=== PATIENT | male | born 1965 | race Caucasian/White ===

== ENCOUNTER 2019-04-05 10:55 | Inpatient (IN) | payer OTHER ==
[2019-04-05 11:34] VITALS: BMI 25.9
--- NOTE | 2019-04-05 13:21 | PN ---
Teaching Attending Note Name of Resident: Kavitha Hancock ATTENDING PHYSICIAN STATEMENT I saw and evaluated the patient. I reviewed the resident's note and discussed the case with the resident. I agree with the resident's findings and plan as documented. SUBJECTIVE: 53 yo with HTN, heroin use disorder, cocaine use, MJ use, was last in detox in February for heroin use, was given Suboxone, discharged on March 31, but relapsed on Apr 02. Using heroin 10bags/day, injects with cocaine- 4 bags/ day. Last use yesterday. Now in withdrawal. COWS 13 OBJECTIVE: Vital Signs - 24 hr 04/05/19 04/05/19 11:24 11:55 Temperature 98.2 F 98.2 F Pulse Rate 75 75 Respiratory 18 18 Rate Blood Pressure 153/98 153/98 tired alert and oriented tremulous ASSESSMENT AND PLAN: Heroin detox- with methadone HTN treatment with norvasc
--- NOTE | 2019-04-05 13:22 | HP ---
COWS - Scale Resting Pulse: 0= [place] 80 or Below Sweatin= Chills/Flushing Restless Observation: 1= Difficult to Sit Still Pupil Size: 0= Normal to Room Light Bone or Joint Aches: 1= Mild Discomfort Runny Nose/ Eye Tearin= Nasal Congestion GI Upset > 30mins: 2= Nausea/Diarrhea Tremor Observation: 1= Tremor [place], Not Seen Yawning Observation: 2= >3x During Session Anxiety or Irritability: 1=Feels Anxious/Irritable Goose Flesh Skin: 3=Piloerection COWS Score: 13 CIWA Score - Admission Criteria OASAS Guidelines: Admission for Medically Managed Detox: Requires at least one of the followin. CIWA greater than 12 2. Seizures within the past 24 hours 3. Delirium tremens within the past 24 hours 4. Hallucinations within the past 24 hours 5. Acute intervention needed for co occurring medical disorder 6. Acute intervention needed for co occurring psychiatric disorder 7. Severe withdrawal that cannot be handled at a lower level of care (continued vomiting, continued diarrhea, abnormal vital signs) requiring intravenous medication and/or fluids 8. Admission ROS [facility] Chief Complaint: detox from heroin and cocaine Allergies/Adverse Reactions: Allergies Allergy/AdvReac Type Severity Reaction Status Date / Time No Known Allergies Allergy Verified 04/05/19 11:29 History of Present Illness: Mr. Foreman is a 53yo male with hx of heroin use disorder, cocaine use disorder , marijuana use disorder, and HTN who presents for detox from heroin and cocaine. He was in detox for 1 week followed by about 3 weeks of rehab at a facility in [place] where he was given suboxone. He also reports being newly diagnosed with HTN and [place] in [place]. He was given a prescription for suboxone at d/c on 03/31/19 but there was a problem with his Medicaid coverage lapsing, so he did not get it filled. He started using heroin and cocaine again on 04/02/19. He has been using 10 bags a day of heroin since the . He mixes it with heroin and injects. He has been using 4 bags of cocaine a day. He initially began heroin and cocaine use at age 16. Pt also reports smoking marijuana socially with last use 3 days ago. He reports occasional ETOH use as well. Smokes tobacco 1/2 ppd. Pt is currently homeless and stays in [place]. Pt reports abdominal pain, nausea, myalgias, chills, hot flashes, goosebumps, SOB, cough, wheezing. Pt denies vomiting, diarrhea, paresthesias, and MERCADO. PMH: heroin, cocaine, and marijuana use disorders, HTN surgical hx: prostatectomy meds: Norvasc, unsure of dosage NKDA - Ebola screening Have you traveled outside of the country in the last 21 days: No Have you had contact with anyone from an Ebola affected area: No Do you have a fever: No - Review of Systems Constitutional: Chills, Diaphoresis EENT: reports: No Symptoms Reported Respiratory: reports: Cough, Shortness of Breath, Wheezing Cardiac: reports: No Symptoms Reported GI: reports: Nausea : reports: No Symptoms Reported Musculoskeletal: reports: Joint Pain, Muscle Pain Integumentary: reports: No Symptoms Reported Neuro: reports: Dizziness Endocrine: reports: Flushing Hematology: reports: No Symptoms Reported Psychiatric: reports: Judgement Intact, Orientated x3, Agitated Patient History - Patient Medical History Hx Asthma: No Hx Cancer: No Hx Hypertension: Yes - Patient Surgical History Past Surgical History: Yes Hx Abdominal Surgery: Yes (prostate removal 2017) - Smoking Cessation Smoking history: Current every day smoker Have you smoked in the past 12 months: Yes Aproximately how many cigarettes per day: 10 Initiated information on smoking cessation: Yes 'Breaking Loose' booklet given: 04/05/19 - Substance & Tx. History Hx Alcohol Use: Yes (intermittent) Hx Substance Use: Yes Substance Use Type: Alcohol, Cocaine, Heroin, Marijuana Hx Substance Use Treatment: Yes (d/c'ed from rehab on 03/31/19) - Substances abused Heroin Substance route: Injection Frequency: Daily Amount used: 10BAGS Age of first use: 16 Date of last use: 04/04/19 Cocaine Substance route: Injection Frequency: Daily Amount used: 4BAGS Age of first use: 16 Date of last use: 04/04/19 Family Disease History - Family Disease History Family History: Denies Admission Physical Exam BHS - Vital Signs Vital Signs: Vital Signs - 24 hr 04/05/19 04/05/19 11:24 11:55 Temperature 98.2 F 98.2 F Pulse Rate 75 75 Respiratory 18 18 Rate Blood Pressure 153/98 153/98 - Physical General Appearance: Yes: Mild Distress HEENTM: Yes: Hearing grossly Normal, NAIN, Pharynx Normal Respiratory: Yes: Lungs Clear, No Respiratory Distress Neck: Yes: Within Normal Limits Cardiology: Yes: Regular Rhythm, Regular Rate Abdominal: Yes: Normal Bowel Sounds, Tenderness Back: Yes: Normal Inspection Musculoskeletal: Yes: full range of Motion Extremities: Yes: Normal Range of Motion Neurological: Yes: 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 II-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 NML intact, Fully Oriented, Alert, Motor Strength 5/5 Integumentary: Yes: Within Normal Limits Cleared for Admission S - Detox or Rehab [facility] Level of Care: Medically Managed Breathalyzer - Breathalyzer Breathalyzer: 0 Vital Signs - Vital Signs Temperature: 98.2 F Pulse Rate: 75 Respiratory Rate: 18 Blood Pressure: 153/98 Blood Pressure position: Sitting - Height Height: 5 ft 6 in - Weight Weight: 73.028 kg - BMI Body Mass Index (BMI): 25.9 Urine Drug Screen - Test Device Lot number: [id number] Expiration date: 12/28/20 - Control Is test valid?: Yes - Results Drug screen NEGATIVE: No Urine drug screen results: THC-Marijuana, ARNULFO-Cocaine, FEN-Fentanyl, MOP-Opiates , OXY-Oxycodone, BZO-Benzodiazepines, BUP-Suboxone Inpatient Rehab Admission - Rehab Decision to Admit Inpatient rehab admission?: No
[2019-04-05] MEDS ORDERED: MAGNESIUM HYDROX 2400MG/30ML ORAL SUSPENSION 30 ML CUP PO PRN (13:23)
[2019-04-05] MEDS ORDERED: MAG HYDROX/AL HYDROX/SIMETH 30 ML UNIT-DOSE CUP PO PRN (13:23)
[2019-04-05] MEDS ORDERED: NICOTINE POLACRILEX 2 MG GUM BUC PRN (13:23)
[2019-04-05] MEDS ORDERED: MENTHOL/PHENOL 1 EACH UD MM PRN (13:23)
[2019-04-05] MEDS ORDERED: IBUPROFEN 400 MG TABLET (FP) PO PRN (13:23)
[2019-04-05] MEDS ORDERED: BISMUTH SUBSALICYLATE 524 MG/30 ML UD PO PRN (13:23)
[2019-04-05] MEDS ORDERED: MAGNESIUM CITRATE 300 ML BOTTLE PO PRN (13:23)
[2019-04-05] MEDS ORDERED: hydrOXYzine PAMOATE 25 MG CAPSULE (FP) PO PRN (13:23)
[2019-04-05] MEDS ORDERED: ACETAMINOPHEN 325 MG TABLET (FP) PO PRN ×2 (13:23)
[2019-04-05] MEDS ORDERED: METHADONE HCL 10 MG TABLET (FOR DETOX USE ONLY) PO ONE (15:00)
[2019-04-05] MEDS: cloNIDine HCL 0.1 MG TABLET PO PRN ×2 (18:01→22:42)
[2019-04-05] MEDS: METHOCARBAMOL 500 MG TABLET PO PRN (18:01)
[2019-04-05] MEDS: THIAMINE HCL 100 MG TABLET (FP) PO SCH (22:42)
[2019-04-05] MEDS: MELATONIN 5 MG TABLETS PO PRN (22:42)
[2019-04-06] MEDS ORDERED: METHADONE HCL 10 MG TABLET (FOR DETOX USE ONLY) ONE (09:21)
[2019-04-06] MEDS ORDERED: METHADONE HCL 5 MG TABLET (FOR DETOX USE ONLY) ONE (09:21)
[2019-04-06] MEDS ORDERED: METHADONE (DETOX) 20 MG, METHADONE (DETOX) 5 MG PO ONE (10:00)
[2019-04-06] MEDS: PRENATAL VITAMINS W/ FOLIC ACID TABLET (FP) PO SCH (10:19)
--- NOTE | 2019-04-06 10:38 | PN ---
BHS COWS - Scale Resting Pulse: 1= [place] 81-100 Sweatin=Flushed/Facial Moisture Restless Observation: 1= Difficult to Sit Still Pupil Size: 0= Normal to Room Light Bone or Joint Aches: 2= Severe Diffuse Aches Runny Nose/ Eye Tearin= Runny Nose/Eyes GI Upset > 30mins: 1= Stomach Cramp Tremor Observation of Outstretched Hands: 1= Tremor [place], Not Seen Yawning Observation: 1= 1-2x During Session Anxiety or Irritability: 1=Feels Anxious/Irritable Goose Flesh Skin: 0=Smooth Skin COWS Score: 12 BHS Progress Note (SOAP) Subjective: sweats shakes interrupted sleep anxiety irritable Objective: 04/06/19 10:36 Vital Signs Temperature 97.5 F L 04/06/19 06:53 Pulse Rate 66 04/06/19 06:53 Respiratory Rate 18 04/06/19 06:53 Blood Pressure 135/99 04/06/19 06:53 O2 Sat by Pulse Oximetry (%) pending labs aaox3 ambulating no acute distress Assessment: 04/06/19 10:37 withdrawal sx Plan: continue detox increase fluids pending labs valium 10mg prn x 3 days
[2019-04-06 11:05] LABS: ALBUMIN 3.9 g/dl (3.4-5.0); BILIRUBIN,TOTAL 0.4 mg/dL (0.2-1); BLOOD UREA NITROGEN 19.9 mg/dL (7-18); CREATININE 0.8 mg/dL (0.55-1.3); POTASSIUM 3.6 mmol/L (3.5-5.1); TOT PROT 7.3 g/dl (6.4-8.2)
[2019-04-06 11:53] LABS: HEMOGLOBIN 13.1 GM/dL (11.7-16.9); MCH 27.9 pg (25.7-33.7); MCHC 33.5 g/dl (32.0-35.9); MEAN CELL VOLUME 83.4 fl (80-96); MEAN PLT VOLUME 8.6 fl (7.5-11.1); PLATELET COUNT 232 K/MM3 (134-434); RBC 4.67 M/mm3 (4.00-5.60); RDW 14.9 % (11.9-15.9); WHITE BLOOD COUNT 4.7 K/mm3 (4.0-10.0)
[2019-04-06] MEDS: diazePAM 5 MG TABLET PO PRN ×2 (18:17→22:06)
[2019-04-06] MEDS: MELATONIN 5 MG TABLETS PO PRN (22:06)
[2019-04-06] MEDS: THIAMINE HCL 100 MG TABLET (FP) PO SCH (22:06)
[2019-04-07] MEDS ORDERED: METHADONE HCL 10 MG TABLET (FOR DETOX USE ONLY) PO ONE (10:00)
[2019-04-07] MEDS: PRENATAL VITAMINS W/ FOLIC ACID TABLET (FP) PO SCH (10:35)
--- NOTE | 2019-04-07 12:23 | PN ---
BHS COWS - Scale Resting Pulse: 0= [place] 80 or Below Sweatin=Flushed/Facial Moisture Restless Observation: 1= Difficult to Sit Still Pupil Size: 0= Normal to Room Light Bone or Joint Aches: 2= Severe Diffuse Aches Runny Nose/ Eye Tearin= Nasal Congestion GI Upset > 30mins: 0= None Tremor Observation of Outstretched Hands: 1= Tremor [place], Not Seen Yawning Observation: 1= 1-2x During Session Anxiety or Irritability: 1=Feels Anxious/Irritable Goose Flesh Skin: 0=Smooth Skin COWS Score: 9 BHS Progress Note (SOAP) Subjective: sweats feeling better anxiety Objective: 04/07/19 12:23 Vital Signs Temperature 97.5 F L 04/07/19 09:33 Pulse Rate 79 04/07/19 09:33 Respiratory Rate 18 04/07/19 09:33 Blood Pressure 137/93 04/07/19 09:33 O2 Sat by Pulse Oximetry (%) Laboratory Tests 04/06/19 04/06/19 04/06/19 06:30 06:30 06:30 WBC 4.7 RBC 4.67 Hgb 13.1 Hct 39.0 MCV 83.4 MCH 27.9 MCHC 33.5 RDW 14.9 Plt Count 232 MPV 8.6 Sodium 143 Potassium 3.6 Chloride 109 H Carbon Dioxide 29 Anion Gap 6 L BUN 19.9 H Creatinine 0.8 Est GFR (CKD-EPI)AfAm 116.56 Est GFR (CKD-EPI)NonAf 100.57 Random Glucose 144 H Calcium 9.0 Total Bilirubin 0.4 AST 30 ALT 42 Alkaline Phosphatase 105 Total Protein 7.3 Albumin 3.9 RPR Titer Nonreactive labs noted aaox3 ambulating no acute distress Assessment: 04/07/19 12:23 withdrawal sx Plan: continue detox increase fluids
[2019-04-07] MEDS ORDERED: HYDROCORTISONE 1% TOPICAL OINT 30 GM TUBE TP PRN (15:14)
[2019-04-07] MEDS: diazePAM 5 MG TABLET PO PRN (20:07)
[2019-04-07] MEDS: cloNIDine HCL 0.1 MG TABLET PO PRN (22:03)
[2019-04-07] MEDS: MELATONIN 5 MG TABLETS PO PRN (22:03)
[2019-04-07] MEDS: THIAMINE HCL 100 MG TABLET (FP) PO SCH (22:03)
[2019-04-08] MEDS ORDERED: METHADONE HCL 10 MG TABLET (FOR DETOX USE ONLY) ONE (09:03)
[2019-04-08] MEDS ORDERED: METHADONE HCL 5 MG TABLET (FOR DETOX USE ONLY) ONE (09:03)
[2019-04-08] MEDS ORDERED: METHADONE (DETOX) 10 MG, METHADONE (DETOX) 5 MG PO ONE (10:00)
[2019-04-08] MEDS: PRENATAL VITAMINS W/ FOLIC ACID TABLET (FP) PO SCH (10:44)
--- NOTE | 2019-04-08 11:15 | PN ---
BHS COWS - Scale Resting Pulse: 1= [place] 81-100 Sweatin=Flushed/Facial Moisture Restless Observation: 1= Difficult to Sit Still Pupil Size: 0= Normal to Room Light Bone or Joint Aches: 1= Mild Discomfort Runny Nose/ Eye Tearin= Nasal Congestion GI Upset > 30mins: 0= None Tremor Observation of Outstretched Hands: 1= Tremor [place], Not Seen Yawning Observation: 1= 1-2x During Session Anxiety or Irritability: 1=Feels Anxious/Irritable Goose Flesh Skin: 0=Smooth Skin COWS Score: 9 BHS Progress Note (SOAP) Subjective: sweats interrupted sleep Objective: 04/08/19 11:15 Vital Signs Temperature 97.7 F 04/08/19 10:08 Pulse Rate 84 04/08/19 10:08 Respiratory Rate 18 04/08/19 10:08 Blood Pressure 145/83 04/08/19 10:08 O2 Sat by Pulse Oximetry (%) Laboratory Tests 04/05/19 04/06/19 04/06/19 13:30 06:30 06:30 WBC 4.7 RBC 4.67 Hgb 13.1 Hct 39.0 MCV 83.4 MCH 27.9 MCHC 33.5 RDW 14.9 Plt Count 232 MPV 8.6 Sodium 143 Potassium 3.6 Chloride 109 H Carbon Dioxide 29 Anion Gap 6 L BUN 19.9 H Creatinine 0.8 Est GFR (CKD-EPI)AfAm 116.56 Est GFR (CKD-EPI)NonAf 100.57 Random Glucose 144 H Calcium 9.0 Total Bilirubin 0.4 AST 30 ALT 42 Alkaline Phosphatase 105 Total Protein 7.3 Albumin 3.9 RPR Titer TB (QFT) Incubation TB Test (QFT) Nil 0.05 TB Test (QFT) Mitogen >10.00 TB Test (QFT) Antigen 0.06 TB Test (QFT) Negative TB Positive Criteria 04/06/19 06:30 WBC RBC Hgb Hct MCV MCH MCHC RDW Plt Count MPV Sodium Potassium Chloride Carbon Dioxide Anion Gap BUN Creatinine Est GFR (CKD-EPI)AfAm Est GFR (CKD-EPI)NonAf Random Glucose Calcium Total Bilirubin AST ALT Alkaline Phosphatase Total Protein Albumin RPR Titer Nonreactive TB (QFT) Incubation TB Test (QFT) Nil TB Test (QFT) Mitogen TB Test (QFT) Antigen TB Test (QFT) TB Positive Criteria labs noted aaox3 ambulating no acute distress Assessment: 04/08/19 11:16 withdrawal sx Plan: continue detox increase fluids
[2019-04-08] MEDS: diazePAM 5 MG TABLET PO PRN (15:55)
[2019-04-08] MEDS: MELATONIN 5 MG TABLETS PO PRN (22:29)
[2019-04-08] MEDS: THIAMINE HCL 100 MG TABLET (FP) PO SCH (22:29)
[2019-04-08] MEDS: METHOCARBAMOL 500 MG TABLET PO PRN (22:31)
[2019-04-09 09:34] VITALS: BP 155/80; PULSE 80; TEMP 97.7
[2019-04-09] MEDS ORDERED: METHADONE HCL 10 MG TABLET (FOR DETOX USE ONLY) PO ONE (10:00)
[2019-04-09] MEDS: PRENATAL VITAMINS W/ FOLIC ACID TABLET (FP) PO SCH (10:22)
--- NOTE | 2019-04-09 10:22 | DS ---
[facility] Detox Discharge Summary Admission Date: 04/05/19 Discharge Date: 04/09/19 - History Present History: Opioid Dependence - Physical Exam Results Vital Signs: Vital Signs Temperature 97.7 F 04/09/19 09:34 Pulse Rate 80 04/09/19 09:34 Respiratory Rate 18 04/09/19 09:34 Blood Pressure 155/80 04/09/19 09:34 O2 Sat by Pulse Oximetry (%) Pertinent Admission Physical Exam Findings: pt arrived in withdrawals Laboratory Tests 04/05/19 04/06/19 04/06/19 13:30 06:30 06:30 WBC 4.7 RBC 4.67 Hgb 13.1 Hct 39.0 MCV 83.4 MCH 27.9 MCHC 33.5 RDW 14.9 Plt Count 232 MPV 8.6 Sodium 143 Potassium 3.6 Chloride 109 H Carbon Dioxide 29 Anion Gap 6 L BUN 19.9 H Creatinine 0.8 Est GFR (CKD-EPI)AfAm 116.56 Est GFR (CKD-EPI)NonAf 100.57 Random Glucose 144 H Calcium 9.0 Total Bilirubin 0.4 AST 30 ALT 42 Alkaline Phosphatase 105 Total Protein 7.3 Albumin 3.9 RPR Titer TB (QFT) Incubation TB Test (QFT) Nil 0.05 TB Test (QFT) Mitogen >10.00 TB Test (QFT) Antigen 0.06 TB Test (QFT) Negative TB Positive Criteria 04/06/19 06:30 WBC RBC Hgb Hct MCV MCH MCHC RDW Plt Count MPV Sodium Potassium Chloride Carbon Dioxide Anion Gap BUN Creatinine Est GFR (CKD-EPI)AfAm Est GFR (CKD-EPI)NonAf Random Glucose Calcium Total Bilirubin AST ALT Alkaline Phosphatase Total Protein Albumin RPR Titer Nonreactive TB (QFT) Incubation TB Test (QFT) Nil TB Test (QFT) Mitogen TB Test (QFT) Antigen TB Test (QFT) TB Positive Criteria today he is aaox3 ambulating no s/s of withdrawals - Treatment Hospital Course: Detox Protocol Followed, Detoxed Safely, Responded well, Discharged Condition Good, Rehab Referral Accepted Patient has Accepted a Rehab Referral to: referral provided - Medication Discharge Medications: Ambulatory Orders NK [No Known Home Medication] 04/05/19 - Diagnosis (1) Opioid dependence with withdrawal Current Visit: Yes Status: Chronic - AMA Did Patient Leave Against Medical Advice: No
[2019-04-10] MEDS ORDERED: METHADONE HCL 5 MG TABLET (FOR DETOX USE ONLY) PO ONE (06:00)
== END 2019-04-09 10:36 | disposition home or self-care (01) | DRG 773 ==
LOC: YASAS 10:55 → Y6N 14:30
PROVIDERS: ADMIT Surgery; ATTEND Surgery
PROC: HZ2ZZZZ Detoxification Services for Substance Abuse Treatment (ICD-10-PCS; principal; 2019-04-05)
DX: F11.23 Opioid dependence with withdrawal (principal); F14.20 Cocaine dependence, uncomplicated; F17.210 Nicotine dependence, cigarettes, uncomplicated; I10 Essential (primary) hypertension
CPT/HCPCS: 36415; 80053; 85027; 86480; 86593; J0735

== ENCOUNTER 2019-04-28 12:34 | Inpatient (IN) | payer OTHER ==
[2019-04-28 13:21] VITALS: BMI 25.8
--- NOTE | 2019-04-28 14:09 | HP ---
COWS - Scale Resting Pulse: 0= [place] 80 or Below Sweatin= No chills or Flushing Restless Observation: 1= Difficult to Sit Still Pupil Size: 0= Normal to Room Light Bone or Joint Aches: 2= Severe Diffuse Aches Runny Nose/ Eye Tearin= Nasal Congestion GI Upset > 30mins: 2= Nausea/Diarrhea Tremor Observation: 0= None Yawning Observation: 1= 1-2x During Session Anxiety or Irritability: 2=Irritable/Anxious Goose Flesh Skin: 0=Smooth Skin COWS Score: 9 CIWA Score - Admission Criteria OASAS Guidelines: Admission for Medically Managed Detox: Requires at least one of the followin. CIWA greater than 12 2. Seizures within the past 24 hours 3. Delirium tremens within the past 24 hours 4. Hallucinations within the past 24 hours 5. Acute intervention needed for co occurring medical disorder 6. Acute intervention needed for co occurring psychiatric disorder 7. Severe withdrawal that cannot be handled at a lower level of care (continued vomiting, continued diarrhea, abnormal vital signs) requiring intravenous medication and/or fluids 8. Admission [facility] Chief Complaint: heroin detox Allergies/Adverse Reactions: Allergies Allergy/AdvReac Type Severity Reaction Status Date / Time No Known Allergies Allergy Verified 04/05/19 11:29 History of Present Illness: Patient is a 54 yo M with a PMHx of HTN, here for heroin, detox. He uses at least 10 bags a day for many years. He uses it IV. Last use was last night, 4 bags. says he wants to change his life. Says his last detox was a few weeks ago. Was on a methadone program years ago. Says he never liked it because it required him to go to a program every day which was hard because of work. Also does cocaine, around 80 dollars a day. Last cocaine use was last night. Carries a narcan pen with him. Currently unemployed. Lives in an apartment with his daughter. Smokes 1PPd of cigarettes per day. 04/05-04/09 Exam Limitations: No Limitations - Ebola screening Have you traveled outside of the country in the last 21 days: No (N) Have you had contact with anyone from an Ebola affected area: No Do you have a fever: No - Review of Systems Constitutional: Loss of Appetite, Unintentional Wgt. Loss (15 lbs in 2 months) Respiratory: reports: Cough. denies: Shortness of Breath Cardiac: denies: Lightheadedness, Palpitations Patient History - Patient Medical History Hx Asthma: No Hx Chronic Obstructive Pulmonary Disease (COPD): No Hx Cancer: No Hx Cardiac Disorders: No Hx Hypertension: No Hx Seizures: No Hx Diabetes: No Hx Gastrointestinal Disorders: No Hx Genitourinary Disorders: No Hx Sexually Transmitted Disorders: No Hx Renal Disease (ESRD): No Hx Depression: No Hx Suicide Attempt: No Hx Schizophrenia: No - Patient Surgical History Past Surgical History: Yes Hx Neurologic Surgery: No Hx Cataract Extraction: No Hx Cardiac Surgery: No Hx Lung Surgery: No Hx Breast Surgery: No Hx Breast Biopsy: No Hx Abdominal Surgery: Yes (prostate removal 2016) Hx Appendectomy: No Hx Cholecystectomy: No Hx Genitourinary Surgery: No Hx Section: No Hx Orthopedic Surgery: No Anesthesia Reaction: No - Smoking Cessation Smoking history: Current every day smoker Have you smoked in the past 12 months: Yes Aproximately how many cigarettes per day: 10 Hx Chewing Tobacco Use: No Initiated information on smoking cessation: Yes 'Breaking Loose' booklet given: 04/28/19 - Substances abused Heroin Substance route: Injection Frequency: Daily Amount used: 10 BAGS Age of first use: 16 Date of last use: 04/27/19 Cocaine Substance route: Injection Frequency: Daily Amount used: 5 BAGS Age of first use: 16 Date of last use: 04/27/19 Family Disease History - Family Disease History Family History: Denies Admission Physical Exam [facility] - Vital Signs Vital Signs: Vital Signs - 24 hr 04/28/19 13:12 Temperature 97.7 F Pulse Rate 74 Respiratory 18 Rate Blood Pressure 135/86 - Physical General Appearance: Yes: Irritable, Anxious Respiratory: Yes: No Respiratory Distress, No Accessory Muscle Use Neck: Yes: Supple Cardiology: Yes: Regular Rate, S1, S2 Abdominal: Yes: Non Tender, Soft Extremities: No: Swelling Integumentary: Yes: Track [place]. No: Rash - Diagnostic (1) Heroin abuse Current Visit: Yes Status: Acute (2) Cocaine abuse Current Visit: Yes Status: Acute (3) Hypertension Current Visit: Yes Status: Acute Cleared for Admission S - Detox or Rehab [facility] Level of Care: Medically Managed Breathalyzer - Breathalyzer Breathalyzer: 0 Urine Drug Screen - Test Device Lot number: [id number] Expiration date: 01/28/21 - Control Is test valid?: Yes - Results Drug screen NEGATIVE: No Urine drug screen results: ARNULFO-Cocaine, FEN-Fentanyl, MOP-Opiates, MTD-Methadone , BZO-Benzodiazepines, BUP-Suboxone Inpatient Rehab Admission - Rehab Decision to Admit Inpatient rehab admission?: No
--- NOTE | 2019-04-28 14:58 | PN ---
Teaching Attending Note Name of Resident: Alejandro Mckenna ATTENDING PHYSICIAN STATEMENT I saw and evaluated the patient. I reviewed the resident's note and discussed the case with the resident. I agree with the resident's findings and plan as documented. SUBJECTIVE:54 Y.O. MALE W/ LONG HX OPIATE DEPENDENCE , RECENT D/C FROM THIS FACILITY 04/09/19 , REPORTS RELAPSE AFTER D/C DID NOT GOT TO OUTPT , CURRENT DAILY USE 1 BUNDLE IVDU , NEEDLES FROM EXCHANGE, DENIES SHARING OR RE-USING, CLAIMS OD AFTER D/C FROM THIS FACILITY , NARCAN USED BY COUSIN , DID NOT GO TO HOSPITAL. DENIES ABSCESS . PMPM RX 04/05/19 ZUBSOLV # 15 REPORTS PARTICIPATION IN MMTP X 2 YEARS MDD 120 MG , VOLUNTARILY LEFT 2-3 YEARS AGO ( [place] ) . FIRST AGE OF USE 18 COCAINE : SINCE AGE 13 VIA INHALATION , 22 IVDU . 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 LIVES W/ DAUGHTER , STATES NARCAN KIT @ HOME . OBJECTIVE: WNWD CURRENT SYMPTOMS ABOVE, COWS =9 ASSESSMENT AND PLAN: OPIATE DEPENDENCE Cocaine dependence Nicotine dependence cannabis use , episodic . Obtain EKG Methadone taper . Vital Signs - 24 hr 04/28/19 04/28/19 13:12 17:28 Temperature 97.7 F 97.8 F Pulse Rate 74 74 Respiratory 18 18 Rate Blood Pressure 135/86 145/94
[2019-04-28] MEDS ORDERED: NICOTINE POLACRILEX 2 MG GUM BUC PRN (15:00)
[2019-04-28] MEDS ORDERED: BISMUTH SUBSALICYLATE 524 MG/30 ML UD PO PRN (15:00)
[2019-04-28] MEDS ORDERED: MAG HYDROX/AL HYDROX/SIMETH 30 ML UNIT-DOSE CUP PO PRN (15:00)
[2019-04-28] MEDS ORDERED: MAGNESIUM CITRATE 300 ML BOTTLE PO PRN (15:00)
[2019-04-28] MEDS ORDERED: IBUPROFEN 400 MG TABLET (FP) PO PRN (15:00)
[2019-04-28] MEDS ORDERED: ACETAMINOPHEN 325 MG TABLET (FP) PO PRN ×2 (15:00)
[2019-04-28] MEDS ORDERED: MAGNESIUM HYDROX 2400MG/30ML ORAL SUSPENSION 30 ML CUP PO PRN (15:00)
[2019-04-28] MEDS ORDERED: cloNIDine HCL 0.1 MG TABLET PO PRN (15:02)
[2019-04-28] MEDS ORDERED: METHADONE HCL 10 MG TABLET (FOR DETOX USE ONLY) PO ONE (16:15)
[2019-04-28] MEDS: PETROLATUM, WHITE 30 GM TUBE TP SCH (18:37)
[2019-04-28] MEDS: hydrOXYzine PAMOATE 25 MG CAPSULE (FP) PO PRN (22:33)
[2019-04-28] MEDS: THIAMINE HCL 100 MG TABLET (FP) PO SCH (22:33)
[2019-04-28] MEDS: METHOCARBAMOL 500 MG TABLET PO PRN (22:33)
[2019-04-28] MEDS: MELATONIN 5 MG TABLETS PO PRN (22:33)
[2019-04-29] MEDS ORDERED: METHADONE HCL 10 MG TABLET (FOR DETOX USE ONLY) ONE (08:55)
[2019-04-29] MEDS ORDERED: METHADONE HCL 5 MG TABLET (FOR DETOX USE ONLY) ONE (08:56)
[2019-04-29] MEDS ORDERED: METHADONE (DETOX) 20 MG, METHADONE (DETOX) 5 MG PO ONE (10:00)
[2019-04-29] MEDS: amLODIPine BESYLATE 5 MG TABLET (FP) PO SCH (10:12)
[2019-04-29] MEDS: PRENATAL VITAMINS W/ FOLIC ACID TABLET (FP) PO SCH (10:12)
[2019-04-29] MEDS: PETROLATUM, WHITE 30 GM TUBE TP SCH (10:13)
--- NOTE | 2019-04-29 11:54 | EKG ---
Test Reason : Blood Pressure : / mmHG Vent. Rate : 063 BPM Atrial Rate : 063 BPM P-R Int : 134 ms QRS Dur : 088 ms QT Int : 428 ms P-R-T Axes : 020 041 025 degrees QTc Int : 437 ms NORMAL SINUS RHYTHM NONSPECIFIC ST ABNORMALITY ABNORMAL ECG NO PREVIOUS ECGS AVAILABLE Confirmed by JANET LORENZO MD ([id number]) on 04/29/2019 11:53:51 AM Referred By: Confirmed By:JANET LORENZO MD
--- NOTE | 2019-04-29 12:08 | PN ---
BHS COWS - Scale Resting Pulse: 0= [place] 80 or Below Sweatin= Chills/Flushing Restless Observation: 1= Difficult to Sit Still Pupil Size: 1= Pupils >than Normal Bone or Joint Aches: 2= Severe Diffuse Aches Runny Nose/ Eye Tearin= Nasal Congestion GI Upset > 30mins: 1= Stomach Cramp Tremor Observation of Outstretched Hands: 2= Slight Tremor Visible Yawning Observation: 1= 1-2x During Session Anxiety or Irritability: 2=Irritable/Anxious Goose Flesh Skin: 0=Smooth Skin COWS Score: 12 BHS Progress Note (SOAP) Subjective: alert,irritable,anxious,interrupted sleep,pin in the body and back Objective: 04/29/19 12:06 Vital Signs Temperature 97.9 F 04/29/19 09:37 Pulse Rate 66 04/29/19 09:37 Respiratory Rate 20 04/29/19 09:37 Blood Pressure 123/76 04/29/19 09:37 O2 Sat by Pulse Oximetry (%) Assessment: 04/29/19 12:07 withdrawal symptom Plan: continue detox methadone regimen,cbc,cmp,rpr selma
[2019-04-29] MEDS: MENTHOL/PHENOL 1 EACH UD MM PRN (22:28)
[2019-04-29] MEDS: MELATONIN 5 MG TABLETS PO PRN (22:28)
[2019-04-29] MEDS: METHOCARBAMOL 500 MG TABLET PO PRN (22:28)
[2019-04-29] MEDS: THIAMINE HCL 100 MG TABLET (FP) PO SCH (22:28)
[2019-04-30 09:24] LABS: ALBUMIN 3.3 g/dl (3.4-5.0); BILIRUBIN,TOTAL 0.2 mg/dL (0.2-1); BLOOD UREA NITROGEN 13.3 mg/dL (7-18); CALCIUM 8.9 mg/dL (8.5-10.1); CREATININE 0.7 mg/dL (0.55-1.3); POTASSIUM 3.6 mmol/L (3.5-5.1); TOT PROT 6.6 g/dl (6.4-8.2)
[2019-04-30 09:34] LABS: HEMATOCRIT 38.1 % (35.4-49); HEMOGLOBIN 12.9 GM/dL (11.7-16.9); MCH 27.7 pg (25.7-33.7); MCHC 33.9 g/dl (32.0-35.9); MEAN CELL VOLUME 81.7 fl (80-96); MEAN PLT VOLUME 7.8 fl (7.5-11.1); PLATELET COUNT 251 K/MM3 (134-434); RBC 4.66 M/mm3 (4.00-5.60); RDW 14.2 % (11.9-15.9); WHITE BLOOD COUNT 5.6 K/mm3 (4.0-10.0)
[2019-04-30] MEDS ORDERED: METHADONE HCL 10 MG TABLET (FOR DETOX USE ONLY) PO ONE (10:00)
[2019-04-30] MEDS: PRENATAL VITAMINS W/ FOLIC ACID TABLET (FP) PO SCH (10:22)
[2019-04-30] MEDS: PETROLATUM, WHITE 30 GM TUBE TP SCH (10:22)
[2019-04-30] MEDS: amLODIPine BESYLATE 5 MG TABLET (FP) PO SCH (10:22)
[2019-04-30] MEDS: METHOCARBAMOL 500 MG TABLET PO PRN (10:23)
[2019-04-30] MEDS ORDERED: AMOXICILLIN 500 MG CAPSULE (FP) PO ONE (14:25)
--- NOTE | 2019-04-30 14:40 | PN ---
BHS COWS - Scale Resting Pulse: 0= [place] 80 or Below Sweatin= Chills/Flushing Restless Observation: 3= Extraneous Movement Pupil Size: 0= Normal to Room Light Bone or Joint Aches: 4=Acute Joint/Muscle Pain Runny Nose/ Eye Tearin= Nasal Congestion GI Upset > 30mins: 0= None Tremor Observation of Outstretched Hands: 1= Tremor [place], Not Seen Yawning Observation: 1= 1-2x During Session Anxiety or Irritability: 2=Irritable/Anxious Goose Flesh Skin: 0=Smooth Skin COWS Score: 13 BHS Progress Note (SOAP) Subjective: C/o anxiety,chills,sweats,tremors,body aches,n/v, no diarrhea. Coughing with brown/green sputum. Denies wheezing or sob. Objective: 04/30/19 14:37 Vital Signs - 24 hr 04/29/19 04/29/19 04/30/19 17:46 21:48 00:30 Temperature 97.8 F 98.0 F Pulse Rate 66 74 Respiratory 16 16 18 Rate Blood Pressure 127/78 126/77 04/30/19 04/30/19 04/30/19 05:59 09:14 13:37 Temperature 98 F 97.5 F L 97.2 F L Pulse Rate 64 71 76 Respiratory 18 18 20 Rate Blood Pressure 123/71 150/98 144/83 Laboratory Tests 04/30/19 04/30/19 04/30/19 07:30 07:30 07:30 WBC 5.6 RBC 4.66 Hgb 12.9 Hct 38.1 MCV 81.7 MCH 27.7 MCHC 33.9 RDW 14.2 Plt Count 251 MPV 7.8 Sodium 142 Potassium 3.6 Chloride 105 Carbon Dioxide 32 Anion Gap 6 L BUN 13.3 Creatinine 0.7 Est GFR (CKD-EPI)AfAm 122.27 Est GFR (CKD-EPI)NonAf 105.50 Random Glucose 81 Calcium 8.9 Total Bilirubin 0.2 AST 18 ALT 28 Alkaline Phosphatase 102 Total Protein 6.6 Albumin 3.3 L RPR Titer Nonreactive Alert o x 3 Cardiac:s1 s2,rrr Lungs:Rhonchi, no wheeze Abdomen:soft,+bs, nt,nd Extremities:No e/c/c Assessment: 08/31/19 14:38 withdrawal sx acute bronchitis Plan: continue methadone detox taper increase po fluids start Amoxicillin 500 mg po tid x 7 days, first dose now. motrin prn for pain
[2019-04-30] MEDS: MELATONIN 5 MG TABLETS PO PRN (21:59)
[2019-04-30] MEDS: AMOXICILLIN 500 MG CAPSULE (FP) PO SCH (21:59)
[2019-04-30] MEDS: THIAMINE HCL 100 MG TABLET (FP) PO SCH (21:59)
[2019-05-01] MEDS: AMOXICILLIN 500 MG CAPSULE (FP) PO SCH ×3 (06:17→22:33)
[2019-05-01] MEDS: METHOCARBAMOL 500 MG TABLET PO PRN ×2 (06:17→22:33)
[2019-05-01] MEDS ORDERED: METHADONE HCL 10 MG TABLET (FOR DETOX USE ONLY) ONE (09:40)
[2019-05-01] MEDS ORDERED: METHADONE HCL 5 MG TABLET (FOR DETOX USE ONLY) ONE (09:40)
[2019-05-01] MEDS ORDERED: METHADONE (DETOX) 10 MG, METHADONE (DETOX) 5 MG PO ONE (10:00)
[2019-05-01] MEDS: PRENATAL VITAMINS W/ FOLIC ACID TABLET (FP) PO SCH (10:21)
[2019-05-01] MEDS: amLODIPine BESYLATE 5 MG TABLET (FP) PO SCH (10:21)
[2019-05-01] MEDS: PETROLATUM, WHITE 30 GM TUBE TP SCH (10:22)
[2019-05-01] MEDS: MENTHOL/PHENOL 1 EACH UD MM PRN ×3 (12:36→22:35)
--- NOTE | 2019-05-01 13:29 | PN ---
[facility] COWS - Scale Resting Pulse: 0= [place] 80 or Below Sweatin= Chills/Flushing Restless Observation: 0= Sits Still Pupil Size: 0= Normal to Room Light Bone or Joint Aches: 1= Mild Discomfort Runny Nose/ Eye Tearin= Nasal Congestion GI Upset > 30mins: 1= Stomach Cramp Tremor Observation of Outstretched Hands: 2= Slight Tremor Visible Yawning Observation: 1= 1-2x During Session Anxiety or Irritability: 2=Irritable/Anxious Goose Flesh Skin: 0=Smooth Skin COWS Score: 9 S Progress Note (SOAP) Subjective: 54 years old male second patient [facility] admission was admitted on 04/28/19 for opiate withdrawal sx management doing well with methadone detox regimen limited food and fluid toleration ensure supplement Objective: 05/01/19 13:31 Vital Signs Temperature 98.7 F 05/01/19 09:47 Pulse Rate 72 05/01/19 09:47 Respiratory Rate 18 05/01/19 09:47 Blood Pressure 136/84 05/01/19 09:47 O2 Sat by Pulse Oximetry (%) Laboratory Last Values WBC 5.6 K/mm3 (4.0-10.0) 04/30/19 07:30 RBC 4.66 M/mm3 (4.00-5.60) 04/30/19 07:30 Hgb 12.9 GM/dL (11.7-16.9) 04/30/19 07:30 Hct 38.1 % (35.4-49) 04/30/19 07:30 MCV 81.7 fl (80-96) 04/30/19 07:30 MCH 27.7 pg (25.7-33.7) 04/30/19 07:30 MCHC 33.9 g/dl (32.0-35.9) 04/30/19 07:30 RDW 14.2 % (11.9-15.9) 04/30/19 07:30 Plt Count 251 K/MM3 (134-434) 04/30/19 07:30 MPV 7.8 fl (7.5-11.1) 04/30/19 07:30 Sodium 142 mmol/L (136-145) 04/30/19 07:30 Potassium 3.6 mmol/L (3.5-5.1) 04/30/19 07:30 Chloride 105 mmol/L (98-107) 04/30/19 07:30 Carbon Dioxide 32 mmol/L (21-32) 04/30/19 07:30 Anion Gap 6 MMOL/L (8-16) L 04/30/19 07:30 BUN 13.3 mg/dL (7-18) 04/30/19 07:30 Creatinine 0.7 mg/dL (0.55-1.3) 04/30/19 07:30 Est GFR (CKD-EPI)AfAm 122.27 04/30/19 07:30 Est GFR (CKD-EPI)NonAf 105.50 04/30/19 07:30 Random Glucose 81 mg/dL (74-106) 04/30/19 07:30 Calcium 8.9 mg/dL (8.5-10.1) 04/30/19 07:30 Total Bilirubin 0.2 mg/dL (0.2-1) 04/30/19 07:30 AST 18 U/L (15-37) 04/30/19 07:30 ALT 28 U/L (13-61) 04/30/19 07:30 Alkaline Phosphatase 102 U/L (45-117) 04/30/19 07:30 Total Protein 6.6 g/dl (6.4-8.2) 04/30/19 07:30 Albumin 3.3 g/dl (3.4-5.0) L 04/30/19 07:30 RPR Titer Nonreactive (NONREACTIVE) 04/30/19 07:30 lab noted Assessment: 05/01/19 13:31 opiate withdrawal sx alert oriented x 3 speech clearly ambulating from room to day room steady gait Plan: continue methadone detox regimen
[2019-05-01] MEDS: THIAMINE HCL 100 MG TABLET (FP) PO SCH (22:33)
[2019-05-01] MEDS: MELATONIN 5 MG TABLETS PO PRN (22:33)
[2019-05-01] MEDS: hydrOXYzine PAMOATE 25 MG CAPSULE (FP) PO PRN (22:33)
[2019-05-02] MEDS: AMOXICILLIN 500 MG CAPSULE (FP) PO SCH ×3 (06:32→22:12)
[2019-05-02] MEDS ORDERED: METHADONE HCL 10 MG TABLET (FOR DETOX USE ONLY) PO ONE (10:00)
[2019-05-02] MEDS: amLODIPine BESYLATE 5 MG TABLET (FP) PO SCH (10:16)
[2019-05-02] MEDS: METHOCARBAMOL 500 MG TABLET PO PRN (10:16)
[2019-05-02] MEDS: PRENATAL VITAMINS W/ FOLIC ACID TABLET (FP) PO SCH (10:16)
[2019-05-02] MEDS: PETROLATUM, WHITE 30 GM TUBE TP SCH (10:18)
--- NOTE | 2019-05-02 11:53 | PN ---
[facility] COWS - Scale Resting Pulse: 0= [place] 80 or Below Sweatin= Chills/Flushing Restless Observation: 0= Sits Still Pupil Size: 0= Normal to Room Light Bone or Joint Aches: 1= Mild Discomfort Runny Nose/ Eye Tearin= Nasal Congestion GI Upset > 30mins: 1= Stomach Cramp Tremor Observation of Outstretched Hands: 1= Tremor [place], Not Seen Yawning Observation: 1= 1-2x During Session Anxiety or Irritability: 1=Feels Anxious/Irritable Goose Flesh Skin: 0=Smooth Skin COWS Score: 7 [facility] Progress Note (SOAP) Subjective: 54 years old male admitted on 05/29/19 for opiate withdrawal sx management doing well with methadone detox regimen no coughing today lung clear on auscultation no shortness of breath no wheezing breath ease and even Objective: 05/02/19 11:52 Vital Signs Temperature 97.9 F 05/02/19 09:14 Pulse Rate 78 05/02/19 09:14 Respiratory Rate 18 05/02/19 09:14 Blood Pressure 146/89 05/02/19 09:14 O2 Sat by Pulse Oximetry (%) Laboratory Last Values WBC 5.6 K/mm3 (4.0-10.0) 04/30/19 07:30 RBC 4.66 M/mm3 (4.00-5.60) 04/30/19 07:30 Hgb 12.9 GM/dL (11.7-16.9) 04/30/19 07:30 Hct 38.1 % (35.4-49) 04/30/19 07:30 MCV 81.7 fl (80-96) 04/30/19 07:30 MCH 27.7 pg (25.7-33.7) 04/30/19 07:30 MCHC 33.9 g/dl (32.0-35.9) 04/30/19 07:30 RDW 14.2 % (11.9-15.9) 04/30/19 07:30 Plt Count 251 K/MM3 (134-434) 04/30/19 07:30 MPV 7.8 fl (7.5-11.1) 04/30/19 07:30 Sodium 142 mmol/L (136-145) 04/30/19 07:30 Potassium 3.6 mmol/L (3.5-5.1) 04/30/19 07:30 Chloride 105 mmol/L (98-107) 04/30/19 07:30 Carbon Dioxide 32 mmol/L (21-32) 04/30/19 07:30 Anion Gap 6 MMOL/L (8-16) L 04/30/19 07:30 BUN 13.3 mg/dL (7-18) 04/30/19 07:30 Creatinine 0.7 mg/dL (0.55-1.3) 04/30/19 07:30 Est GFR (CKD-EPI)AfAm 122.27 04/30/19 07:30 Est GFR (CKD-EPI)NonAf 105.50 04/30/19 07:30 Random Glucose 81 mg/dL (74-106) 04/30/19 07:30 Calcium 8.9 mg/dL (8.5-10.1) 04/30/19 07:30 Total Bilirubin 0.2 mg/dL (0.2-1) 04/30/19 07:30 AST 18 U/L (15-37) 04/30/19 07:30 ALT 28 U/L (13-61) 04/30/19 07:30 Alkaline Phosphatase 102 U/L (45-117) 04/30/19 07:30 Total Protein 6.6 g/dl (6.4-8.2) 04/30/19 07:30 Albumin 3.3 g/dl (3.4-5.0) L 04/30/19 07:30 RPR Titer Nonreactive (NONREACTIVE) 04/30/19 07:30 lab noted bp elevation no headache no chest pain S1S2 regular rate rhythm increase amlodipine to 10 mg po daily 05/02/19 11:53 05/02/19 11:54 Assessment: 05/02/19 11:55 opiate withdrawal sx hypertension treated with amlodipine 10 mg tolerate amoxicillin well no anaphylactic signs noted Plan: continue methadone detox regimen
[2019-05-02] MEDS ORDERED: amLODIPine BESYLATE 5 MG TABLET (FP) PO ONE (14:00)
[2019-05-02] MEDS: THIAMINE HCL 100 MG TABLET (FP) PO SCH (22:12)
[2019-05-02] MEDS: MENTHOL/PHENOL 1 EACH UD MM PRN (22:13)
[2019-05-03] MEDS: AMOXICILLIN 500 MG CAPSULE (FP) PO SCH (05:41)
[2019-05-03] MEDS ORDERED: METHADONE HCL 5 MG TABLET (FOR DETOX USE ONLY) PO ONE (06:00)
[2019-05-03] MEDS ORDERED: amLODIPine BESYLATE 5 MG TABLET (FP) PO SCH (06:00)
[2019-05-03 06:10] VITALS: BP 113/71; PULSE 63; TEMP 98.1
--- NOTE | 2019-05-03 13:00 | DS ---
[facility] Detox Discharge Summary Admission Date: 04/28/19 Discharge Date: 05/03/19 - History Present History: Opioid Dependence Additional Comments: 54 years old male 2nd patient [facility] admission was admitted on 04/28/19 for opiate withdrawal sx management did well with methadone detox regimen no complication through out the detox stay patient agrees to consider medication assisted treatment program patient is alert oriented x 3 cardiac S1S2 regular rate rhythm respiratory clear lung bilaterally on auscultation abdomen soft no rebound tenderness extremities full rang of motion skin warm and dry Pertinent Past History: hypertension acute bronchitis - Physical Exam Results Vital Signs: Vital Signs Temperature 98.1 F 05/03/19 06:09 Pulse Rate 63 05/03/19 06:09 Respiratory Rate 18 05/03/19 06:30 Blood Pressure 113/71 05/03/19 06:09 O2 Sat by Pulse Oximetry (%) Pertinent Admission Physical Exam Findings: opiate withdrawal sx Laboratory Last Values WBC 5.6 K/mm3 (4.0-10.0) 04/30/19 07:30 RBC 4.66 M/mm3 (4.00-5.60) 04/30/19 07:30 Hgb 12.9 GM/dL (11.7-16.9) 04/30/19 07:30 Hct 38.1 % (35.4-49) 04/30/19 07:30 MCV 81.7 fl (80-96) 04/30/19 07:30 MCH 27.7 pg (25.7-33.7) 04/30/19 07:30 MCHC 33.9 g/dl (32.0-35.9) 04/30/19 07:30 RDW 14.2 % (11.9-15.9) 04/30/19 07:30 Plt Count 251 K/MM3 (134-434) 04/30/19 07:30 MPV 7.8 fl (7.5-11.1) 04/30/19 07:30 Sodium 142 mmol/L (136-145) 04/30/19 07:30 Potassium 3.6 mmol/L (3.5-5.1) 04/30/19 07:30 Chloride 105 mmol/L (98-107) 04/30/19 07:30 Carbon Dioxide 32 mmol/L (21-32) 04/30/19 07:30 Anion Gap 6 MMOL/L (8-16) L 04/30/19 07:30 BUN 13.3 mg/dL (7-18) 04/30/19 07:30 Creatinine 0.7 mg/dL (0.55-1.3) 04/30/19 07:30 Est GFR (CKD-EPI)AfAm 122.27 04/30/19 07:30 Est GFR (CKD-EPI)NonAf 105.50 04/30/19 07:30 Random Glucose 81 mg/dL (74-106) 04/30/19 07:30 Calcium 8.9 mg/dL (8.5-10.1) 04/30/19 07:30 Total Bilirubin 0.2 mg/dL (0.2-1) 04/30/19 07:30 AST 18 U/L (15-37) 04/30/19 07:30 ALT 28 U/L (13-61) 04/30/19 07:30 Alkaline Phosphatase 102 U/L (45-117) 04/30/19 07:30 Total Protein 6.6 g/dl (6.4-8.2) 04/30/19 07:30 Albumin 3.3 g/dl (3.4-5.0) L 04/30/19 07:30 RPR Titer Nonreactive (NONREACTIVE) 04/30/19 07:30 lab noted - Treatment Hospital Course: Detox Protocol Followed, Detoxed Safely, Responded well, Discharged Condition Good, Rehab Referral Accepted Patient has Accepted a Rehab Referral to: medication assisted treatment - Medication Discharge Medications: Ambulatory Orders Amlodipine Besylate [Norvasc -] 10 mg PO DAILY #30 tablet 05/02/19 Amoxicillin - [Amoxicillin 500mg Capsule -] 500 mg PO TID #10 capsule 05/02/19 - Diagnosis (1) Bronchitis Current Visit: Yes Status: Acute (2) Opioid dependence with withdrawal Current Visit: Yes Status: Acute (3) Hypertension Current Visit: Yes Status: Chronic Qualifiers: Hypertension type: essential hypertension Qualified Code(s): I10 - Essential (primary) hypertension - AMA Did Patient Leave Against Medical Advice: No COWS (PN) - Opiate Withdrawal Resting Pulse: 0= [place] 80 or Below Sweatin= Chills/Flushing Restless Observation: 0= Sits Still Pupil Size: 0= Normal to Room Light Bone or Joint Aches: 1= Mild Discomfort Runny Nose/ Eye Tearin= None GI Upset > 30mins: 0= None Tremor Observation of Outstretched Hands: 1= Tremor [place], Not Seen Yawning Observation: 0= None Anxiety or Irritability: 1=Feels Anxious/Irritable Goose Flesh Skin: 0=Smooth Skin COWS Score: 4
== END 2019-05-03 08:55 | disposition home or self-care (01) | DRG 773 ==
LOC: YASAS 12:34 → Y3N 15:26
PROVIDERS: ADMIT Surgery; ATTEND Surgery
PROC: HZ2ZZZZ Detoxification Services for Substance Abuse Treatment (ICD-10-PCS; principal; 2019-04-28)
DX: F11.23 Opioid dependence with withdrawal (principal); F14.20 Cocaine dependence, uncomplicated; F12.10 Cannabis abuse, uncomplicated; F17.210 Nicotine dependence, cigarettes, uncomplicated; I10 Essential (primary) hypertension; J20.9 Acute bronchitis, unspecified; Z90.79 Acquired absence of other genital organ(s)
CPT/HCPCS: 36415; 80053; 85027; 86593; 93005; 93010; J0735